=== PATIENT | female | born 1950 | race Caucasian/White ===

== ENCOUNTER 2017-10-31 14:44 | Emergency (ER) | payer MEDICARE, OTHER ==
[2017-10-31 18:54] VITALS: BP 159/88
--- NOTE | 2017-10-31 19:02 | UC ---
Complaint Female HPI - HPI Summary HPI Summary: Urinary pain and burning on/off for 1 week - History Of Current Complaint Chief Complaint: UCGU Stated Complaint: URINARY Time Seen by Provider: 10/31/17 18:36 Hx Obtained From: Patient ?: No Onset/Duration: Gradual Onset Timing: Intermittent Severity Initially: Moderate Severity Currently: Mild Character: Burning Aggravating Factor(s): Movement, Urination - Allergies/Home Medications Allergies/Adverse Reactions: Allergies Allergy/AdvReac Type Severity Reaction Status Date / Time Codeine Allergy Nausea And Verified 10/31/17 18:54 Vomiting HERNANDEZ Allergy Nausea And Uncoded 10/31/17 18:54 Vomiting PMH/Surg Hx/FS Hx/Imm Hx Previously Healthy: Yes - Surgical History Surgical History: Yes Surgery Procedure, Year, and Place: 07/06/2012 INTESTINAL SURGERY WITH COLOSTOMY, [facility]. REVERSAL OF COLOSTOMY--11/2012 - Social History Occupation: Retired Lives: Alone Alcohol Use: Daily Substance Use Type: None Smoking Status (MU): Current Every Day Smoker Type: Cigarettes Amount Used/How Often: 1/2 PPD Length of Time of Smoking/Using Tobacco: 25 YRS Review of Systems Constitutional: Negative Skin: Negative Eyes: Negative ENT: Negative Respiratory: Negative Cardiovascular: Negative Gastrointestinal: Negative Genitourinary: Dysuria, Frequency, Urgency Motor: Negative Neurovascular: Negative Musculoskeletal: Negative Neurological: Negative Psychological: Negative Is Patient Immunocompromised?: No All Other Systems Reviewed And Are Negative: Yes Physical Exam Triage Information Reviewed: Yes Appearance: Well-Appearing, No Pain Distress, Well-Nourished Vital Signs: Initial Vital Signs Temp 99 F 10/31/17 18:46 Pulse 92 10/31/17 18:46 Resp 20 10/31/17 18:46 BP 159/88 10/31/17 18:46 Pulse Ox 96 10/31/17 18:46 Vital Signs Reviewed: Yes Eye Exam: Normal Eyes: Positive: Conjunctiva Clear ENT Exam: Normal ENT: Positive: Normal ENT inspection, Hearing grossly normal, Pharynx normal. Negative: Trismus, Muffled voice, Hoarse voice, Dental tenderness Dental Exam: Normal Neck exam: Normal Neck: Positive: Supple, Nontender, No Lymphadenopathy Respiratory Exam: Normal Respiratory: Positive: Chest non-tender, Lungs clear, Normal breath sounds, No respiratory distress, No accessory muscle use Cardiovascular Exam: Normal Cardiovascular: Positive: RRR, No Murmur, Pulses Normal, Brisk Capillary Refill Abdominal Exam: Normal Abdomen Description: Positive: Nontender, No Organomegaly, Soft. Negative: CVA Tenderness (R), CVA Tenderness (L) Bowel Sounds: Positive: Present Musculoskeletal Exam: Normal Musculoskeletal: Positive: Strength Intact, ROM Intact, No Edema Neurological Exam: Normal Neurological: Positive: Alert, Muscle Tone Normal Psychological Exam: Normal Skin Exam: Normal Diagnostics - Laboratory Diagnostic Studies Completed/Ordered: UA -+1 blood Complaint Female Dx - Course Course Of Treatment: insrease fluids, follow with gyno-urology and or pcp - Differential Dx/Diagnosis Provider Diagnoses: dysuria Discharge - Discharge Plan Condition: Stable Disposition: HOME Patient Education Materials: Hematuria (ED), Dysuria (ED), Hypertension (ED) Referrals: Kel RASCON,Isaura Benites [Medical Doctor] - As Soon As Possible Madhuri Juarez MD [Primary Care Provider] - 2 Weeks
== END 2017-10-31 19:21 | disposition home or self-care (01) ==
LOC: UCCORT 14:44
DX: R30.0 Dysuria (principal); Z88.5 Allergy status to narcotic agent; F17.210 Nicotine dependence, cigarettes, uncomplicated
CPT/HCPCS: 81003; 99211; G0463

== ENCOUNTER 2019-07-05 07:23 | Day surgery (SDC) | payer BC ==
[~2019-07-05 07:23] MED LIST: Buffered Lidocaine 1% SYRIN* 1 ML/SYRINGE INTRADERM ONE; Bupivacaine 0.5% SDV PF* 30ML VIAL ONE; Famotidine IV* 10 MG/ML 2 ML (20 mg) IV ONE; Famotidine IV* 10 MG/ML 2 ML (20 mg) ONE; Lactated Ringers 1000 ML Bag* 1,000 ML IV SCH
[2019-07-05] MEDS ORDERED: fentaNYL* 50 MCG/ML 2 ML VIAL (100 MCG VIAL) ONE ×2 (08:33→12:25)
[2019-07-05] MEDS ORDERED: Midazolam* 1 MG/ML 5 ML VIAL (5 MG) ONE ×2 (08:34→12:25)
--- NOTE | 2019-07-05 08:50 | HP ---
Amended report to enter cosigning physician. PREOPERATIVE HISTORY AND PHYSICAL: DATE OF SURGERY/ADMISSION: 07/05/19 DATE OF OFFICE VISIT/ENCOUNTER: 06/30/19 ATTENDING SURGEON: Breann Monroe MD* (dictated by MARY Greco). PROCEDURE: Left elbow open reduction internal fixation. HISTORY OF PRESENT ILLNESS: This is a 68-year-old female who sustained injury to her left elbow on 06/28/19 when she tripped over a bench and fell onto her left upper extremity. She was seen at [facility] and had x-rays, which showed a proximal ulnar fracture and a fracture dislocation of the proximal radius. She was splinted and referred to Dr. Monroe for further evaluation and treatment considerations. The patient denies any numbness or tingling and denies other injuries. After review of x-rays and examination by Dr. Monroe, she has consented to proceed with surgical intervention for best outcome. PAST MEDICAL HISTORY: Diverticulitis. PAST SURGICAL HISTORY: 1. Diverticular surgery. 2. Colostomy and reverse colostomy. CURRENT MEDICATIONS: None. ALLERGIES: Codeine causes nausea and vomiting. FAMILY MEDICAL HISTORY: Noncontributory. SOCIAL HISTORY: The patient is a retired teacher. She is a current smoker, approximately half a pack per day and has done so for 30 years. She denies recreational drug use. She drinks alcohol on regular occasion. REVIEW OF SYSTEMS: Negative for general, cephalic, cardiovascular, respiratory , GI, , other musculoskeletal, integumentary, endocrine, neurologic, and hematologic symptoms. Infectious Disease: Negative for MRSA, hepatitis C, HIV. PHYSICAL EXAMINATION GENERAL: Well-developed, well-nourished 68-year-old female, in no acute distress. VITAL SIGNS: Height 5 feet 4-1/2 inches, weight 170 pounds, pulse rate 89, blood pressure 132/82. HEENT: Normocephalic, atraumatic. Pupils are equal, round, and reactive to light and accommodation. Extraocular movements are intact. Throat is clear. NECK: Supple. No palpable lymph nodes. PULMONARY: Lungs are clear to auscultation bilaterally. No wheezes, rales, or rhonchi. CARDIOVASCULAR: Regular rate and rhythm. S1, S2. No murmurs, rubs, or gallops. No edema. ABDOMEN: Positive bowel sounds, soft, nontender. MUSCULOSKELETAL: The patient's left upper extremity is maintained in a sugar tong splint. She has [id number] swelling in her fingers, but she has good movement and neurovascular function is intact. NEUROLOGICAL: Alert and oriented x3. Cranial nerves II through XII are intact. Sensation is intact to light. IMAGING STUDIES: X-rays AP, lateral, and oblique, pre and post reduction show a proximal ulnar fracture which is extra-articular and a radial head fracture with a radial head dislocation. IMPRESSION: Monteggia fracture, dislocation of the left elbow. PLAN: The patient is scheduled to undergo left elbow open reduction internal fixation with Dr. Monroe on 07/05/19. She will return to the office 10 days postop for followup and suture removal. She has Percocet prescribed by the [facility] that she will plan on using for postoperative pain management. MARY GRECO [id number]/[facility] #: [id number] [place]
[2019-07-05] MEDS ORDERED: Naloxone* 0.4 MG/ML 1 ML VIAL IV PRN (09:10)
[2019-07-05] MEDS ORDERED: HYDROcodone/ACETAMIN 5-325 MG* 1 TAB PO PRN (09:10)
[2019-07-05] MEDS ORDERED: DiMENhydriNATE IV* 50 MG/ML VIAL IV PUSH PRN (09:10)
[2019-07-05] MEDS ORDERED: Ketorolac INJ* 30 MG/ML 1 ML VIAL ONE (09:23)
[2019-07-05] MEDS ORDERED: Propofol* 10 MG/ML 20 ML BTL ONE (09:23)
[2019-07-05] MEDS ORDERED: Lidocaine 2% PF * 5 ML VIAL ONE (09:23)
[2019-07-05] MEDS ORDERED: Dexamethasone IV* 4 MG/ML 1 ML (4 MG) ONE (09:25)
[2019-07-05] MEDS ORDERED: Ondansetron INJ* 2 MG/ML VIAL ONE (09:25)
[2019-07-05] MEDS ORDERED: DiMENhydriNATE IV* 50 MG/ML VIAL ONE (10:39)
[2019-07-05] MEDS ORDERED: HYDROmorphone INJ* 0.5 MG/0.5 ML SYRINGE ONE (10:46)
--- NOTE | 2019-07-05 11:44 | OP ---
CC: Dr. Monroe* OPERATIVE REPORT: DATE OF OPERATION: 07/05/19 - [facility] DATE OF : 52 SURGEON: Breann Monroe MD. WARDROBE IMAGE CONSULTANT: MARY Greco. ANESTHESIOLOGIST: Kamilah Toussaint MD. ANESTHESIA: General. PRE-OP DIAGNOSIS: Monteggia fracture dislocation of the left elbow. POST-OP DIAGNOSIS: Monteggia fracture dislocation of the left elbow. OPERATIVE PROCEDURE: Open reduction internal fixation of the left elbow. ESTIMATED BLOOD LOSS: Less than 20 mL. TOURNIQUET TIME: 1-1/2 hours. INDICATION FOR PROCEDURE: Krupa is a 68-year-old female who tripped over a bench and landed on her left elbow. She suffered a fracture dislocation of the elbow with an extraarticular ulnar fracture and a radial head fracture and posterior dislocation. Closed reduction was not adequate. The radial head was still dislocated. She presents for ORIF of the left elbow. DESCRIPTION OF PROCEDURE: The patient was brought to the operating room and was given a general anesthetic and placed in the supine position on the operating table with a tourniquet around her left upper arm. The skin of her left upper extremity was prepped and draped in the usual sterile fashion. The upper extremity was exsanguinated and the tourniquet elevated to 250 mmHg. A posterior incision was made and we dissected through the subcutaneous tissue down to the fracture fragments. The fracture fragments were debrided and then through the fracture, we could see that the radial head was dislocated. There was a very small fragment of the rim of the radial head that was in the joint and this was removed. The joint was copiously irrigated with saline. When the ulnar fracture was reduced, we were able to keep the radial head reduced except in full extension. The ulnar fracture fragments were secured with a Synthes periarticular ulnar plate with 4 proximal and 4 distal screws. The position of the hardware and fracture fragments were checked on the C-arm in the AP and lateral views and found to be satisfactory. In full extension, the radial head subluxed. It was evident that the annular ligament was torn, so this was secured to the ulna with a Mitek suture anchor. I was then able to fully range the joint without feeling any subluxation in the radial head. I was able to fully range the joint in flexion, extension, pronation, and supination. The wound was copiously irrigated with saline. The subcutaneous tissue was closed in interrupted fashion with 3-0 Vicryl suture and the skin was reapproximated with skin jalen. The wound was dressed with Xeroform, 4x4, Webril, and a posterior splint with the elbow in 90 degrees. The patient tolerated the procedure well and was brought to the recovery room in good condition. [id number]/[facility] #: [id number] [place]
[2019-07-05] MEDS ORDERED: HYDROmorphone INJ1* 1 MG/ML SYRINGE ONE (11:51)
[2019-07-05] MEDS: HYDROmorphone INJ1* 1 MG/ML SYRINGE IV PRN ×3 (11:54→12:49)
[2019-07-05] MEDS ORDERED: HYDROcodone/ACETAMIN 5-325 MG* 1 TAB ONE (12:49)
[2019-07-05 13:41] VITALS: BP 155/77
== END 2019-07-05 13:22 | disposition home or self-care (01) ==
LOC: OREAST 07:23
PROVIDERS: ATTEND Orthopaedic Surgery
DX: S52.272A Monteggia's fracture of left ulna, initial encounter for closed fracture (principal); Z72.0 Tobacco use; M19.90 Unspecified osteoarthritis, unspecified site; W18.09XA Striking against other object with subsequent fall, initial encounter; Y92.9 Unspecified place or not applicable
CPT/HCPCS: 76000; C1713; C1776; J1100; J1170; J1240; J1885; J2250; J2405; J2704; J3010; J3490

== ENCOUNTER 2019-07-19 11:04 | Day surgery (SDC) | payer MEDICARE ==
--- NOTE | 2019-07-18 16:42 | HP ---
PREOPERATIVE HISTORY AND PHYSICAL: DATE OF ADMISSION/SURGERY: 07/19/19 - [facility] DATE OF OFFICE VISIT/ENCOUNTER: 07/18/19 ATTENDING SURGEON: Breann Monroe MD * (DICTATED BY MARY SÁNCHEZ) PROCEDURE: Left elbow closed/possible open reduction and ligament repair. HISTORY OF PRESENT ILLNESS: This is a 68-year-old female, who recently underwent an open reduction and internal fixation of her left elbow on . Since then she has had persistent subluxation of the radial head. Different bracing has been tried to keep the radial head in reduced position, however, the subluxation persists. Dr. Monroe is recommending a return to the operating room for a closed/possible open reduction with possible ligament repair of the left elbow. The patient has consented to proceed. PAST MEDICAL HISTORY: Diverticulitis. PAST SURGICAL HISTORY: 1. Left elbow open reduction and internal fixation. 2. Diverticular surgery. 3. Colostomy and reverse colostomy. CURRENT MEDICATIONS: None. ALLERGIES: CODEINE causes nausea and vomiting. FAMILY MEDICAL HISTORY: Noncontributory. SOCIAL HISTORY: The patient is a retired teacher. She is a current smoker, approximately half a pack per day and has smoked for 30 years. She denies recreational drug use. She drinks alcohol on regular occasions. REVIEW OF SYSTEMS: Negative for general, cephalic, cardiovascular, respiratory , GI, , other musculoskeletal, integumentary, endocrine, neurologic, and hematologic symptoms. Infectious Disease: Negative for MRSA, hepatitis C, HIV. PHYSICAL EXAMINATION GENERAL: A well-developed, well-nourished 68-year-old female, in no acute distress. VITAL SIGNS: Height 5 feet 6 inches, weight 170 pounds, pulse rate 96, blood pressure 150/86. HEENT: Normocephalic, atraumatic. Pupils are equal, round, and reactive to light and accommodation. Extraocular movements are intact. Throat is clear. NECK: Supple. No palpable lymph nodes. PULMONARY: Lungs are clear to auscultation bilaterally. No wheezes, rales, or rhonchi. CARDIOVASCULAR: Regular rate and rhythm. S1, S2. No murmurs, rubs, or gallops. No edema. ABDOMEN: Positive bowel sounds, soft, nontender. MUSCULOSKELETAL: The patient's left upper extremity is maintained in a hinged elbow brace. The surgical incision is well healed. She has very limited range of motion of the elbow and it is very painful for her to try to supine her forearm. When her elbow is extended more than 90 degrees, her radial head is subluxing and her forearm cannot be rotated. Neurovascular function is intact. IMAGING STUDIES: X-rays AP and lateral of the left elbow showed the hardware to be in very good position but the radial head is subluxed. IMPRESSION: Status post open reduction and internal fixation left elbow with persistent subluxation of the radial head. PLAN: The patient is scheduled to undergo a left elbow closed/possible open reduction and ligament repair with Dr. Monroe on 07/19/19. She will return to the office 10 days postop for followup and suture removal. She prefers to use over the counter medications Advil and/or Tylenol for postoperative pain management. MARY SÁNCHEZ [id number]/[facility] #: [id number] [place]
[~2019-07-19 11:04] MED LIST changes: -Bupivacaine 0.5% SDV PF* 30ML VIAL ONE; +Dexamethasone IV* 4 MG/ML 1 ML (4 MG) IV SLOW PU ONE; -Famotidine IV* 10 MG/ML 2 ML (20 mg) ONE
[2019-07-19] MEDS ORDERED: Dexamethasone IV* 4 MG/ML 1 ML (4 MG) ONE (11:29)
[2019-07-19] MEDS ORDERED: Famotidine IV* 10 MG/ML 2 ML (20 mg) ONE (11:29)
[2019-07-19] MEDS ORDERED: ceFAZolin 2 GM PREMIX in ORs 0 GM/0 ML BAG ONE (11:29)
[2019-07-19] MEDS ORDERED: fentaNYL* 50 MCG/ML 2 ML VIAL (100 MCG VIAL) ONE (12:33)
[2019-07-19] MEDS ORDERED: Propofol* 10 MG/ML 20 ML BTL ONE (12:34)
[2019-07-19] MEDS ORDERED: Lidocaine 2% PF * 5 ML VIAL ONE (12:34)
[2019-07-19] MEDS ORDERED: Midazolam* 1 MG/ML 2 ML VIAL (2 MG) ONE (12:34)
[2019-07-19] MEDS ORDERED: PROCHLORPERAZINE INJ 5 MG/ML 2 ML VIAL IV PRN (13:36)
[2019-07-19] MEDS ORDERED: Ketorolac INJ* 30 MG/ML 1 ML VIAL IV PRN (13:36)
[2019-07-19] MEDS ORDERED: Naloxone* 0.4 MG/ML 1 ML VIAL IV PRN (13:36)
[2019-07-19] MEDS ORDERED: fentaNYL* 50 MCG/ML 2 ML VIAL (100 MCG VIAL) IV PRN (13:36)
[2019-07-19] MEDS ORDERED: HYDROcodone/ACETAMIN 5-325 MG* 1 TAB PO PRN (13:36)
[2019-07-19] MEDS ORDERED: oxyCODONE/Acetamin 5/325 MG* TAB PO PRN (13:36)
[2019-07-19] MEDS ORDERED: DiMENhydriNATE IV* 50 MG/ML VIAL IV PUSH PRN (13:36)
[2019-07-19] MEDS ORDERED: Ondansetron INJ* 2 MG/ML VIAL ONE (13:58)
[2019-07-19 15:32] VITALS: BP 166/76
--- NOTE | 2019-07-19 21:52 | OP ---
DATE OF OPERATION: 07/19/19 [facility] DATE OF : 52 SURGEON: Dr. Monroe. SIGNAL WORKER HELPER: MARY Greco ANESTHESIA: General. PRE-OP DIAGNOSIS: Dislocation of the left radial head status post Monteggia fracture-dislocation. POST-OP DIAGNOSIS: Dislocation of the left radial head status post Monteggia fracture-dislocation. OPERATIVE PROCEDURE: Closed reduction left radial head. ESTIMATED BLOOD LOSS: 0. INDICATION FOR PROCEDURE: Krupa is a 68-year-old female who had a Monteggia fracture-dislocation of her left elbow. There was a radial head fragment and this was removed during the procedure. The ulna was reduced and plated and remains well reduced and the hardware in good position. Postop x- ray showed the radial head to be subluxed posteriorly and I was unable to reduce it in the office. The patient presents now for a closed, possible open reduction of the left radial head. DESCRIPTION OF PROCEDURE: The patient was brought to the operating room, was given a general anesthetic, and placed in the supine position on the operating table. The brace was removed. The brace is set to stay locked at 90 degrees. With supination and flexion of the elbow, the radial head reduced. I was able to visualize this on the C-arm. It subluxed again at about 50 degrees of flexion, stayed reduced above 90 degrees of flexion and was most stable in neutral rotation. The patient was placed back in her brace locked at 90 degrees of flexion and neutral rotation and will be advised not to remove the brace. I will see her back in followup for recheck in approximately 10 days. [id number]/[facility] #: [id number] [facility]ENTERJuan
== END 2019-07-19 15:25 | disposition home or self-care (01) ==
LOC: OREAST 11:04
PROVIDERS: ATTEND Orthopaedic Surgery
DX: S52.125S Nondisplaced fracture of head of left radius, sequela (principal); X58.XXXS Exposure to other specified factors, sequela; Y92.9 Unspecified place or not applicable; Z72.0 Tobacco use
CPT/HCPCS: 76000; J0690; J1100; J2250; J2405; J2704; J3010

== ENCOUNTER → 2019-07-30 | Day surgery (SDC) | payer MEDICARE ==
[~2019-07-30] MED LIST changes: +Acetaminophen IV 1GM/100ML * 100 ML ONE; +Bupivacaine 0.5%* 50 ML MDV VIAL ONE; -Dexamethasone IV* 4 MG/ML 1 ML (4 MG) IV SLOW PU ONE; +Dexamethasone TAB* 4 MG ONE; +Dexamethasone TAB* 4 MG PO ONE; +DiMENhydriNATE IV* 50 MG/ML VIAL IV PUSH PRN; +Famotidine IV* 10 MG/ML 2 ML (20 mg) ONE; +HYDROmorphone INJ1* 1 MG/ML SYRINGE ONE; +KETAMINE HCL* 50 MG/ML 10 ML VIAL ONE; +Ketorolac INJ* 30 MG/ML 1 ML VIAL ONE; +Labetalol IV* 5 MG/ML 20 ML VIAL ONE; +Lidocaine 2% PF * 5 ML VIAL ONE; +Midazolam* 1 MG/ML 5 ML VIAL (5 MG) ONE; +Naloxone* 0.4 MG/ML 1 ML VIAL IV PRN; +Ondansetron ODT TAB* 4 MG ONE; +Ondansetron ODT TAB* 4 MG PO ONE; +PROCHLORPERAZINE INJ 5 MG/ML 2 ML VIAL IV PRN; +Propofol* 10 MG/ML 20 ML BTL ONE; +ceFAZolin 2 GM in NS PREMIX(*) 2 GM/100 ML BAG IVPB ONE; +fentaNYL* 50 MCG/ML 2 ML VIAL (100 MCG VIAL) IV PRN; +fentaNYL* 50 MCG/ML 2 ML VIAL (100 MCG VIAL) ONE; +oxyCODONE TAB* 5 MG TAB PO PRN
[2019-07-30] MEDS: HYDROmorphone INJ1* 1 MG/ML SYRINGE IV PRN ×2 (13:44→13:56)
[2019-07-30 14:10] VITALS: BP 176/94
--- NOTE | 2019-07-30 18:37 | OP ---
OPERATIVE REPORT: DATE OF OPERATION: 07/30/19 DATE OF : 52 SURGEON: Rainer Erickson MD SORTING MACHINE ATTENDANT: MARY Carson An assistant technician was needed for the procedure to aid in positioning of the arm and retraction. ANESTHESIOLOGIST: Dr. Lee. ANESTHESIA: General. PRE-OP DIAGNOSIS: A 3-1/2-week-old dislocated left radial head fracture dislocation, status post prior Monteggia fracture dislocation treated with open reduction internal fixation in early July 2019. POST-OP DIAGNOSIS: A 3-1/2-week-old dislocated left radial head fracture dislocation status post prior Monteggia fracture dislocation treated with open reduction internal fixation in early July 2019. PROCEDURE PERFORMED: Left upper radial head excision. INDICATIONS: Ms. Luevano had her initial index ORIF done 3-1/2 weeks ago. She underwent a subsequent closed reduction of the radial head. It re- dislocated. I saw her yesterday in the clinic. Her initial fracture was extraarticular. There also the volar rim of the radius was sheared off in the injury too and so that is I am certain contributing to the instability as well. Ultimately, I told her we had 2 options. We could try to go in and realign the ulna and see if we get the radial head to stay reduced. The other option would be a radial head excision. I do not think we need to replace the radial head. She has no tenderness along the interosseous membrane. This is not a fracture pattern that tends to tear the interosseous membrane, this is less rotational, and so I would just do a simple radial head excision. She understands all that. She is not interested in pursuing revision fixation of the ulna. Again, I do not think we need to put a radial head replacement in. ESTIMATED BLOOD LOSS: 5 mL. COMPLICATIONS: None. FINDINGS: See above and below. DESCRIPTION OF PROCEDURE: Ms. Luevano was seen in the preoperative holding area. The correct site, side, and procedures were identified. We came back to the operating room, the arm was prepped and draped in usual fashion, and a time- out was performed. The arm was exsanguinated with the Esmarch and the tourniquet was inflated to 250 mmHg. I made an incision centered over the lateral epicondyle, taking down distally obliquely. Full-thickness flaps were raised off the fascia. I started in the mid point of the lateral epicondyle and split the fascia down in between the ECRL and the EDC. I split the subfascial layer. The first centimeters of the supinator was split. The annular ligament was incised. The radial head was noted to be dislocated posteriorly and perched on the capitellum. The shear fracture was noted. There was some articular cartilage damage to the capitellum. I went ahead and placed baby Hohmann elevators around the radial neck very safely to make sure I did not grab the posterior interosseous nerve. I then used a sagittal saw to excise about a centimeter and a half of the radial head and neck. It came off in one nice piece. I irrigated out the wound copiously. I placed bone wax in the cancellous bed of the radius. At this point, everything was looking good. Full pronation and supination had been restored without any catching or clicking. I was able to get full flexion. She lacked about 20 degrees of extension. The wound was again irrigated out. The fascia and annular ligament were closed in 1 layer with 0 Vicryl suture. The subcutaneous tissue was reapproximated with 2-0 Vicryl. Skin was closed with jalen. 0.25% plain Marcaine was infiltrated about the area. The wound was dressed with Xeroform, 4x4, sterile Webril, and then a long arm splint leaving the wrist free and was applied. She was taken to the recovery room in stable condition. [id number]/[facility] #: [id number] [place]
== END | disposition home or self-care (01) ==
LOC: OR 08:42
PROVIDERS: ATTEND Orthopaedic Surgery Hand Surgery
DX: S52.272D Monteggia's fracture of left ulna, subsequent encounter for closed fracture with routine healing (principal); Z72.0 Tobacco use; X58.XXXD Exposure to other specified factors, subsequent encounter; Y92.9 Unspecified place or not applicable
CPT/HCPCS: 88304; 88311; A9270-GY; J0690; J1170; J1885; J2250; J2704; J3010; J3490; J8540

== ENCOUNTER 2021-05-20 16:35 | Observation (INO) ==
[2021-05-20 18:45] LABS: ABS Basophils 0.1 10^3/ul (0-0.2); ABS Lymphocytes 1.6 10^3/ul (1.0-4.8); ABS Monocytes 0.6 10^3/ul (0-0.8); ABS Neutrophils 5.7 10^3/ul (1.5-7.7); Eosinophil % 0.3 %; Hematocrit 46 % (35-47); Lymphocyte % 19.9 %; Mean Corpuscular HGB Conc 35 g/dL (31-36); Mean Corpuscular Hemoglobin 32 pg (27-31); Mean Corpuscular Volume 93 fL (80-97); Mean Platelet Volume 8.2 fL (7.4-10.4); Nucleated Red Blood Cells % 0.1; Platelet Count 225 10^3/uL (150-450); Red Blood Count 4.94 10^6 /uL (3.70-4.87); Red Cell Distribution Width 13 % (10-15); White Blood Count 8.1 10^3/uL (3.5-10.8)
[2021-05-20 19:03] LABS: Troponin I 0.01 ng/mL (<0.03)
[2021-05-20 19:11] LABS: Activated Partial Thrombo Time 31.1 seconds (26.0-38.0); INR 1.02 (0.86-1.15)
[2021-05-20 19:20] LABS: Albumin 4.1 g/dL (3.2-5.2); Albumin/Globulin Ratio 1.4 (1-3); Calcium 9.4 mg/dL (8.6-10.3); EGFR African American 109.4 (>60); EGFR Non-African American 90.4 (>60); Globulin 2.9 g/dL (2-4); HDL Cholesterol 65.7 mg/dL; Magnesium 2.1 mg/dL (1.9-2.7); Potassium 3.9 mmol/L (3.5-5.0); Total Bilirubin 0.5 mg/dL (0.2-1.0)
[2021-05-20] MEDS ORDERED: Iohexol 350 (CONTRAST) 500 ML MDV IV ONE (19:25)
[2021-05-20] MEDS ORDERED: Enoxaparin 40 MG/0.4 ML SYR SUBCUT SCH (22:33)
[2021-05-21 06:00] LABS: ABS Basophils 0.1 10^3/ul (0-0.2); ABS Eosinophils 0.1 10^3/ul (0-0.6); ABS Lymphocytes 2.4 10^3/ul (1.0-4.8); ABS Monocytes 0.7 10^3/ul (0-0.8); ABS Neutrophils 4.1 10^3/ul (1.5-7.7); Hematocrit 44 % (35-47); Lymphocyte % 32.7 %; Mean Corpuscular HGB Conc 34 g/dL (31-36); Mean Corpuscular Hemoglobin 32 pg (27-31); Mean Corpuscular Volume 95 fL (80-97); Mean Platelet Volume 8.7 fL (7.4-10.4); Nucleated Red Blood Cells % 0.1; Platelet Count 195 10^3/uL (150-450); Red Blood Count 4.68 10^6 /uL (3.70-4.87); Red Cell Distribution Width 13 % (10-15); White Blood Count 7.3 10^3/uL (3.5-10.8)
[2021-05-21 06:19] LABS: Calcium 8.8 mg/dL (8.6-10.3)
[2021-05-21 06:22] LABS: Potassium 4.1 mmol/L (3.5-5.0)
[2021-05-21 06:24] LABS: EGFR African American 127.2 (>60); EGFR Non-African American 105.2 (>60)
[2021-05-21] MEDS ORDERED: Perflutren Lipid Microsphere 3 ML VIAL ONE (09:43)
[2021-05-21 15:38] VITALS: BP 134/52
[2021-05-21 21:30] LABS: TSH Ultra Thyroid Stim Horm 3.84 mcIU/mL (0.34-5.60)
== END 2021-05-21 17:35 | disposition home or self-care (01) ==
LOC: ED 16:35 → MEDTELE 16:35
PROVIDERS: ADMIT Pediatrics; ATTEND Internal Medicine

== ENCOUNTER 2023-07-31 16:34 | Inpatient (IN) ==
[2023-07-31] MEDS ORDERED: ceFAZolin 2 GM in NS PREMIX 2 GM/100 ML BAG IVPB ONE ×2 (16:48→17:19)
[2023-07-31] MEDS ORDERED: ceFAZolin 2 GM/50 ML BAG IV ONE (17:30)
[2023-07-31 17:39] LABS: ABS Lymphocytes 1.1 10^3/uL (1.0-4.8); ABS Monocytes 0.9 10^3/uL (0.0-0.9); ABS Neutrophils 12.9 10^3/uL (1.5-7.6); ABS Nucleated RBC 0.01 10^3/ul; Lymphocyte % 7.1 %; Mean Corpuscular Hemoglobin 31.8 pg (27-33); Mean Corpuscular Hgb Conc 34.8 g/dL (31-36); Mean Corpuscular Volume 91.3 fL (80-97); Mean Platelet Volume 8.4 fL (7.5-11.2); Platelet Count 234 10^3/uL (150-450); Red Blood Count 4.71 10^6/uL (3.63-4.92); Red Cell Distribution Width 13.4 % (12-17); White Blood Count 14.9 10^3/uL (3.8-11.8)
[2023-07-31 17:43] LABS: INR 1.06 (0.83-1.13)
[2023-07-31] MEDS ORDERED: oxyCODONE/Acetamin 5/325 mg TAB PO PRN ×2 (18:07)
[2023-07-31] MEDS ORDERED: Ondansetron 4 mg VIAL 2 MG/ML 2 ml VIAL IV PRN (18:07)
[2023-07-31 18:11] LABS: Albumin 4.1 g/dL (3.2-5.2); Calcium 9.7 mg/dL (8.6-10.3); Potassium 4.4 mmol/L (3.5-5.0); Total Bilirubin 0.5 mg/dL (0.2-1.0)
[2023-07-31 18:17] LABS: Albumin/Globulin Ratio 1.2 (1-3); Creatinine, Serum 0.6 mg/dL (0.51-0.95); Globulin 3.3 g/dL (2-4); Total Protein 7.4 g/dL (6.4-8.9); eGFR CKD-EPI 95.9 (>60)
[2023-07-31] MEDS ORDERED: Morphine 2 MG/ML SYRINGE IV PRN (21:59)
[2023-07-31] MEDS: Enoxaparin 40 MG/0.4 ML SYR SUBCUT SCH ×2 (22:55→23:02)
[2023-07-31] MEDS: NS 0.9% 1000 ml BAG 1,000 ML IV SCH (22:56)
[2023-08-01] MEDS: ceFAZolin 2 GM in NS PREMIX 2 GM/100 ML BAG IVPB SCH ×3 (01:04→17:07)
[2023-08-01] MEDS: Enoxaparin 40 MG/0.4 ML SYR SUBCUT SCH (21:21)
[2023-08-02] MEDS: ceFAZolin 2 GM in NS PREMIX 2 GM/100 ML BAG IVPB SCH ×3 (00:37→16:35)
[2023-08-02] MEDS: Enoxaparin 40 MG/0.4 ML SYR SUBCUT SCH (21:49)
[2023-08-03] MEDS: ceFAZolin 2 GM in NS PREMIX 2 GM/100 ML BAG IVPB SCH ×3 (00:45→17:15)
[2023-08-03] MEDS: Enoxaparin 40 MG/0.4 ML SYR SUBCUT SCH (22:00)
[2023-08-04] MEDS ORDERED: Ondansetron 4 mg VIAL 2 MG/ML 2 ml VIAL IV PRN (00:07)
[2023-08-04] MEDS ORDERED: fentaNYL 100 mcg/2 ml 50 MCG/ML VIAL IV PRN (00:07)
[2023-08-04] MEDS ORDERED: HYDROmorphone 1 MG/1 ML SYRINGE IV PRN (00:07)
[2023-08-04] MEDS ORDERED: Naloxone 0.4 mg VIAL 0.4 mg/ml 1 ml VIAL IV PRN (00:07)
[2023-08-04] MEDS: NS 0.9% 1000 ml BAG 1,000 ML IV SCH ×2 (04:44→15:21)
[2023-08-04 07:18] LABS: Calcium 8.2 mg/dL (8.6-10.3); Creatinine, Serum 0.52 mg/dL (0.51-0.95); Potassium 4.5 mmol/L (3.5-5.0); eGFR CKD-EPI 99.3 (>60)
[2023-08-04 07:41] LABS: ABS Lymphocytes 0.6 10^3/uL (1.0-4.8); ABS Monocytes 0.2 10^3/uL (0.0-0.9); ABS Neutrophils 10.6 10^3/uL (1.5-7.6); Hematocrit 32.7 % (35-45); Hemoglobin 11.2 g/dL (11.5-14.3); Lymphocyte % 5.2 %; Mean Corpuscular Hemoglobin 31.6 pg (27-33); Mean Corpuscular Hgb Conc 34.3 g/dL (31-36); Mean Corpuscular Volume 92.1 fL (80-97); Mean Platelet Volume 8.2 fL (7.5-11.2); Platelet Count 195 10^3/uL (150-450); Red Blood Count 3.55 10^6/uL (3.63-4.92); Red Cell Distribution Width 13.4 % (12-17); White Blood Count 11.4 10^3/uL (3.8-11.8)
[2023-08-04] MEDS: ceFAZolin 2 GM in NS PREMIX 2 GM/100 ML BAG IVPB SCH ×3 (09:25→17:31)
[2023-08-04] MEDS ORDERED: Buffered Lidocaine 1% SYRIN 1 ml INTRADERM ONE (13:51)
[2023-08-04] MEDS ORDERED: Lactated Ringers 1000 ml BAG 1,000 ML IV SCH (14:00)
[2023-08-04] MEDS ORDERED: Enoxaparin 40 MG/0.4 ML SYR SUBCUT SCH (21:00)
[2023-08-05] MEDS: NS 0.9% 1000 ml BAG 1,000 ML IV SCH (01:55)
[2023-08-05] MEDS: ceFAZolin 2 GM in NS PREMIX 2 GM/100 ML BAG IVPB SCH ×2 (01:56→08:54)
[2023-08-05] MEDS ORDERED: Buffered Lidocaine 1% SYRIN 1 ml INTRADERM ONE (06:00)
[2023-08-05] MEDS ORDERED: Lactated Ringers 1000 ml BAG 1,000 ML IV SCH (06:00)
[2023-08-05] MEDS ORDERED: ceFAZolin 2 GM in NS PREMIX 2 GM/100 ML BAG IVPB ONE (14:31)
[2023-08-05] MEDS ORDERED: ceFAZolin 2 GM PREMIX 2 GM/50 ML BAG IV SCH (17:00)
[2023-08-05] MEDS ORDERED: Vancomycin 1,000 MG VIAL IRRIGATION ONE (18:36)
[2023-08-05] MEDS ORDERED: fentaNYL 100 mcg/2 ml 50 MCG/ML VIAL IV PRN (19:39)
[2023-08-05] MEDS ORDERED: Naloxone 0.4 mg VIAL 0.4 mg/ml 1 ml VIAL IV PRN (19:39)
[2023-08-05] MEDS ORDERED: Ondansetron 4 mg VIAL 2 MG/ML 2 ml VIAL IV PRN (19:39)
[2023-08-05] MEDS ORDERED: fentaNYL 100 mcg/2 ml 50 MCG/ML VIAL ONE (23:56)
[2023-08-06] MEDS: ceFAZolin 2 GM PREMIX 2 GM/50 ML BAG IV SCH ×3 (04:17→18:03)
[2023-08-06 06:30] LABS: ABS Lymphocytes 1.1 10^3/uL (1.0-4.8); ABS Monocytes 0.7 10^3/uL (0.0-0.9); ABS Neutrophils 8.8 10^3/uL (1.5-7.6); ABS Nucleated RBC 0.01 10^3/ul; Hematocrit 28.3 % (35-45); Lymphocyte % 10.1 %; Mean Corpuscular Hemoglobin 31.9 pg (27-33); Mean Corpuscular Hgb Conc 35.3 g/dL (31-36); Mean Corpuscular Volume 90.5 fL (80-97); Nucleated Red Blood Cells % 0.1 /100 WBC (0.0-0.4); Platelet Count 212 10^3/uL (150-450); Red Blood Count 3.12 10^6/uL (3.63-4.92); White Blood Count 10.6 10^3/uL (3.8-11.8)
[2023-08-06 06:49] LABS: Albumin 3.4 g/dL (3.2-5.2); Albumin/Globulin Ratio 1.5 (1-3); Calcium 8.6 mg/dL (8.6-10.3); Creatinine, Serum 0.48 mg/dL (0.51-0.95); Globulin 2.3 g/dL (2-4); Potassium 4.2 mmol/L (3.5-5.0); Total Bilirubin 0.6 mg/dL (0.2-1.0); Total Protein 5.7 g/dL (6.4-8.9); eGFR CKD-EPI 101.2 (>60)
[2023-08-06] MEDS ORDERED: Enoxaparin 40 MG/0.4 ML SYR SUBCUT SCH (09:00)
[2023-08-06] MEDS ORDERED: Polyethylene Glycol 3350 17 GM PACKET PO PRN (12:14)
[2023-08-06] MEDS ORDERED: Magnesium Hydroxide LIQ 30 ML UDC PO PRN (12:14)
[2023-08-06] MEDS ORDERED: Lactulose 30 ml UDC PO SCH (13:00)
[2023-08-06 18:22] VITALS: BP 121/77
== END 2023-08-06 18:45 | disposition home or self-care (01) | DRG 464 ==
LOC: ED 16:34 → AA 18:12 → SSU 22:19
PROVIDERS: ADMIT Orthopaedic Surgery Sports Medicine; ATTEND Orthopaedic Surgery Sports Medicine